=== PATIENT | female | born 2000 | race African-American/Black ===

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

== ENCOUNTER 2020-05-29 19:44 | Emergency (ER) | payer OTHER | END 2020-05-29 20:43 | disposition home or self-care (01) | LOC: NAV ERS 19:44 | DX: O99.891 Other specified diseases and conditions complicating pregnancy (principal); R11.0 Nausea; Z3A.01 Less than 8 weeks gestation of pregnancy | CPT/HCPCS: 99283 ==

== ENCOUNTER 2020-06-07 14:31 | Emergency (ER) | payer OTHER ==
[2020-06-07 15:07] LABS: Bilirubin Small (Negative); Blood, Urine Negative (Negative); Clarity Clear (Clear); Glucose, Urine (Dipstick) Negative (Negative); Ketone, Urine Trace mg/dL (Negative); Leukocyte Negative (Negative); Nitrite Negative (Negative); Protein, Urine (Dipstick) 30 mg/dL (Neg-Trace); pH, Urine 6.5 (5.0-9.0)
[2020-06-07 15:18] LABS: Specific Gravity, Urine Greater/Equal 1.030 (1.005-1.030)
[2020-06-07 15:20] LABS: Bacteria/HPF Rare-Few HPF (None Seen); RBC/HPF 0-3 HPF (0-3); WBC/HPF 0-3 HPF (0-3)
== END 2020-06-07 15:42 | disposition home or self-care (01) ==
LOC: NAV ERS 14:31
DX: O99.891 Other specified diseases and conditions complicating pregnancy (principal); R11.0 Nausea; Z3A.01 Less than 8 weeks gestation of pregnancy
CPT/HCPCS: 81003; 81015; 99283

== ENCOUNTER 2020-06-25 17:57 | Emergency (ER) | payer OTHER ==
[2020-06-25] MEDS ORDERED: Sodium Chloride 0.9% 1,000 ML ONE ×2 (18:28→19:15)
== END 2020-06-25 20:09 | disposition home or self-care (01) ==
LOC: NAV ERS 17:57
DX: O21.1 Hyperemesis gravidarum with metabolic disturbance (principal); Z3A.10 10 weeks gestation of pregnancy
CPT/HCPCS: 99283; J7050

== ENCOUNTER 2020-10-28 11:33 | Emergency (ER) | payer OTHER ==
[2020-10-28 12:12] LABS: Bilirubin Negative (Negative); Blood, Urine Negative (Negative); Clarity Clear (Clear); Glucose, Urine (Dipstick) Negative (Negative); Ketone, Urine Negative (Negative); Leukocyte Moderate (Negative); Nitrite Negative (Negative); Protein, Urine (Dipstick) Negative (Neg-Trace); Specific Gravity, Urine 1.025 (1.005-1.030)
[2020-10-28 12:19] LABS: Bacteria/HPF Rare-Few HPF (None Seen); RBC/HPF 0-3 HPF (0-3); WBC/HPF 0-3 HPF (0-3)
== END 2020-10-28 13:05 | disposition left against medical advice (07) ==
LOC: NAV ERS 11:33
DX: O99.891 Other specified diseases and conditions complicating pregnancy (principal); R10.32 Left lower quadrant pain; Z3A.28 28 weeks gestation of pregnancy
CPT/HCPCS: 81003; 81015; 87086; 99284

== ENCOUNTER 2021-06-25 18:38 | Emergency (ER) | payer OTHER ==
[2021-06-25] MEDS ORDERED: Acetaminophen 325 MG TAB ONE (19:14)
== END 2021-06-25 20:15 | disposition home or self-care (01) ==
LOC: NAV ERS 18:38
DX: J10.1 Influenza due to other identified influenza virus with other respiratory manifestations (principal)
CPT/HCPCS: 87804; 99283

== ENCOUNTER 2022-03-09 16:48 | Emergency (ER) | payer OTHER ==
[2022-03-09] MEDS ORDERED: Dexamethasone 4 MG TAB ONE (17:39)
== END 2022-03-09 18:44 | disposition home or self-care (01) ==
LOC: NAV ERS 16:48
DX: J02.9 Acute pharyngitis, unspecified (principal); J06.9 Acute upper respiratory infection, unspecified
CPT/HCPCS: 87081; 87430; 87804; 99283; J8540